=== PATIENT | male | born 1965 | race Two or more races ===

== ENCOUNTER 2018-01-01 21:20 | Emergency (ER) | payer MEDICAID ==
[~2018-01-01] VITALS: Ht 175.3 cm; Wt 90.3 kg
[2018-01-01 21:43] VITALS: Ht 175.3 cm; Wt 90.3 kg
[2018-01-02 00:12] VITALS: BP 143/95
== END 2018-01-02 00:12 | disposition home or self-care (01) ==
LOC: ED 21:20
DX: L03.011 Cellulitis of right finger (principal); R03.0 Elevated blood-pressure reading, without diagnosis of hypertension

== ENCOUNTER 2018-01-04 15:07 | Emergency (ER) | payer MEDICAID ==
[~2018-01-04] VITALS: Ht 175.3 cm; Wt 89.8 kg
[2018-01-04 15:17] VITALS: BP 139/91; Ht 175.3 cm; Wt 89.8 kg
== END 2018-01-04 16:07 | disposition home or self-care (01) ==
LOC: ED 15:07
DX: Z48.01 Encounter for change or removal of surgical wound dressing (principal)

== ENCOUNTER 2018-11-25 16:28 | Emergency (ER) | payer MEDICAID ==
[~2018-11-25] VITALS: Ht 175.3 cm; Wt 81.6 kg
[2018-11-25 16:32] VITALS: Ht 175.3 cm; Wt 81.6 kg
[2018-11-25 19:10] VITALS: BP 145/94
== END 2018-11-25 19:10 | disposition home or self-care (01) ==
LOC: ED 16:28
DX: M76.61 Achilles tendinitis, right leg (principal)
CPT/HCPCS: Q0092

== ENCOUNTER 2019-08-16 18:09 | Emergency (ER) | payer MEDICAID ==
[~2019-08-16] VITALS: Ht 175.3 cm; Wt 97.1 kg
[2019-08-16 18:15] VITALS: BP 117/90; Ht 175.3 cm; Wt 97.1 kg
== END 2019-08-16 19:22 | disposition home or self-care (01) ==
LOC: ED 18:09
DX: M25.572 Pain in left ankle and joints of left foot (principal)
CPT/HCPCS: Q0092

== ENCOUNTER → 2019-11-01 | Outpatient (CLI) | payer MEDICAID | END | disposition home or self-care (01) | LOC: RD 12:41 | DX: M25.562 Pain in left knee (principal) ==